=== PATIENT | female | born 1970 | race Hispanic/Latino ===

== ENCOUNTER 2017-10-25 16:18 | Emergency (ER) | payer OTHER ==
[~2017-10-25] VITALS: Ht 162.6 cm; Wt 85.3 kg
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
[2017-10-25] MEDS ORDERED: LIDOCAINE1 EACH TOP (17:35)
[2017-10-25] MEDS ORDERED: SPIRIVA RESPIMAT4 G1 INH (17:40)
[2017-10-25] MEDS ORDERED: TRAMADOL HCL50 M1 PO (17:40)
[2017-10-25] MEDS ORDERED: ALBUTEROL2.5 MG/3 M INH/SOL (17:40)
[2017-10-25] MEDS ORDERED: VENLAFAXINE HC150 MG PO (17:40)
[2017-10-25] MEDS ORDERED: DULOXETINE HCL30 MG PO (17:41)
[2017-10-25] MEDS ORDERED: COLACE100 M1 PO (17:41)
[2017-10-25] MEDS ORDERED: CLONAZEPAM1 M2 PO (17:41)
[2017-10-25] MEDS ORDERED: LINZESS145 MC1 PO (17:41)
[2017-10-25] MEDS ORDERED: IPRAT-ALBUT 0.5-3 ML INH (17:42)
[2017-10-25] MEDS ORDERED: PROAIR HFA8.5 GM INH (17:42)
[2017-10-25] MEDS ORDERED: MONTELUKAST SOD10 M1 PO (17:42)
[2017-10-25] MEDS ORDERED: FLUTICASONE PRO16 GM NASB (17:42)
[2017-10-25] MEDS ORDERED: SYMBICORT 16010.2 GM INH (17:43)
[2017-10-25] MEDS ORDERED: CHANTIX1 MG PO (17:43)
[2017-10-25] MEDS ORDERED: HYDROXYZINE PAM50 M1 PO (17:44)
[2017-10-25] MEDS ORDERED: ZOLPIDEM TARTRA10 M1 PO (17:44)
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
[2017-10-25] MEDS ORDERED: ROBAXIN-750750 M1 PO (19:44)
[2017-10-25] MEDS ORDERED: IBUPROFEN800 M1 PO (19:44)
[2017-10-25 19:55] VITALS: BP 122/78
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
== END 2017-10-25 19:56 ==
LOC: ERH 16:18
DX: M62.838 Other muscle spasm (principal)
CPT/HCPCS: 73030-RT; 73080-RT